=== PATIENT | female | born 1990 | race Caucasian/White ===

== ENCOUNTER 2019-02-01 10:46 | Day surgery (SDC) | payer OTHER, SELFPAY ==
[2019-01-29 09:04] VITALS: BMI 40.1
[2019-02-01] VITALS (15 sets, daily range): BP systolic 86–117; BP diastolic 40–70; PULSE 56–77; RESP 10–20; TEMP 35.8–36.5; O2SAT 94–100; BMI 40.1
--- NOTE | 2019-02-01 | PATH_ITS ---
[facility] Accession Number: [id number] . 01 Material submitted: . ovary - RIGHT OVARY WITH RIGHT FALLOPIAN TUBE . 02 Diagnosis: Right Ovary with Right Fallopian Tube: Benign mature cystic teratoma (dermoid cyst), ovary. Fallopian tube unremarkable. MRV/02/03/2019 . 02 Electronically signed: . Omar Henriquez MD, Pathologist NPI- [id number] . 01 Gross description: . Received in formalin, labeled right ovary with right fallopian tube, is an opened ovarian cyst (5.8 x 5.8 x 2.3 cm) and a detached fimbriated fallopian tube (length-4.2 cm, diameter-0.4 cm). The cyst has hill-pink smooth shiny serosa. The lining is partially hair-bearing and contains apparent bone (1.4 x 1.0 x 0.9 cm). A minimal amount of normal ovarian parenchyma is identified. The cyst contents are also submitted and consist of orange-yellow waxy paste-like material mixed with matted strands of hair (9.0 x 7.5 x 2.3 cm in aggregate). The fallopian tube has hill-beltre smooth shiny serosa with multiple paratubal cysts (0.1 cm-0.8 cm) containing clear colorless fluid. The lumen is beltre and unremarkable. Section code: (A1-A4) ovarian cyst, cash applications representative tissue; (A5) fallopian tube, cash applications representative serial sections; (A6) fimbria, bivalved, entirely submitted. ([id number]) /MRV . 02 Pathologist provided ICD-10: D27.0 . 02 CPT . 390327 Performed at: [address] [place] [address] [address], [place], [place] [id number] MD Amadou Pozo MD Phone: [phone] Performed at: [facility] [address] [place] [id number] MD Lizzie Ovalles MD Phone: [phone]
[2019-02-01] MEDS: METOCLOPRAMIDE 10 MG/2 ML INJ IV (11:22)
[2019-02-01] MEDS: FAMOTIDINE 20 MG/50 ML PIGGYBACK 200 MG IV (11:22)
[2019-02-01] MEDS: LACTATED RINGERS 1,000 ML 100 ML IV ×2 (11:40→13:14)
[2019-02-01] MEDS: CEFAZOLIN 2 GM/100 ML FROZ.PIGGY IV (12:28)
--- NOTE | 2019-02-01 13:05 | SUR.OPER ---
preoperative heart tones 140
[2019-02-01] MEDS: BUPIVACAINE 0.5% W/ EPI (PF) VIAL 30 ML INJ (13:13)
--- NOTE | 2019-02-01 13:48 | PM.HP.1 ---
History of Present Illness Date Patient Seen: 02/01/19 Time Patient Seen: 11:45 Chief complaint: [id number] LAP R OOPHORECTOMY Narrative: Patient is a 28-year-old 1 para 0 at 13 weeks gestation with a 9 cm right ovarian dermoid She is here for a laparoscopic right salpingo oophorectomy Patient History Medical History (Updated 02/01/19 @ 11:18 by Rohan Colby) Dermoid cyst (Acute) (Acute) Social History household members: significant other Smoking Status: Never smoker Family & Social History Social History: household members significant other Tobacco & Substance use: Smoking Status Never smoker Meds Home Medications Medication Instructions Recorded Confirmed Type 1 tab PO DAILY 01/28/19 02/01/19 History vitamin,calcium,smgexszp-ctyj-uikbt acid tablet Allergies Allergy/AdvReac Type Severity Reaction Status Date / Time Penicillins Allergy Severe sob, I Verified 02/01/19 11:16 can't breath Exam Vital Signs (past 8 hours): - 02/01/19 11:41 Temperature 97.1 F L Pulse Rate 69 Respiratory Rate 12 Blood Pressure 117/70 Pulse Oximetry 98 Oxygen Delivery Method Room Air Narrative Exam Narrative: HEENT: No thyromegaly, no anterior cervical or supraclavicular lymphadenopathy. Lungs:Clear to auscultation bilaterally, no wheezes. Cardiovascular: Regular rate and rhythm, no murmurs, rubs, or gallops. Abdomen: No scars. No hepatosplenomegaly. No masses palpable. Fundal height: 14 cm External genitalia: Normal Vagina: Normal Cervix: Normal Bimanual exam: 13 Week size uterus. Mobile. Rectal: No masses. Assessment & Plan Assessment & Plan narrative: Assessment: 28-year-old 1 para 0 with a 9 cm right ovarian dermoid Plan: Laparoscopic right salpingo oophorectomy The risks, benefits, and alternatives to the procedure were explained to the patient. The risks including bleeding, infection, injury to the bowel, bladder, or ureters. She also understands that there is possibility of an open procedure. She understands these risks and agrees to proceed. A full par Q was held and consent form was signed. Time Spent With Patient Time with patient: 15-24 minutes
--- NOTE | 2019-02-01 13:56 | SUR.OPER ---
postoperative heart tones 137
--- NOTE | 2019-02-01 13:59 | PM.PREOP ---
Pre-operative Note Interval Note History & Physical reviewed/Exam performed by Physician: Yes Changes to H&P: No
[2019-02-01] MEDS: fentaNYL 100 MCG/2 ML INJ 50 MCG IV (14:21)
--- NOTE | 2019-02-01 14:24 | SUR.PHASEI ---
1410 OB CALLED TO COME GET FHT.
[2019-02-01] MEDS: OXYCODONE/ACETAMINOPHEN 5/325 TABLET 1 TAB PO (15:10)
--- NOTE | 2019-02-01 15:13 | SUR.PHASEI ---
1420 RN FROM OB IN TO DO FHT, [id number].
--- NOTE | 2019-02-16 20:27 | P.OP_ITS ---
Operative Date/Time/Diagnoses Date of procedure: 02/01/19 Time of procedure: 13:30 Pre-op diagnosis: 9 cm right ovarian dermoid 13 weeks gestation Post-op diagnosis: same Procedure: Procedures Operation Date: 02/01/19 11:45 Actual Procedures Side Surgeon p Laparoscopic right salpingo oophorectomy for dermoid cyst Right Claudia Cano MD Indications: 9 cm right ovarian dermoid 13 weeks gestation Surgeon: Claudia Cano Anesthesia Type: General Operative Notes Findings: 9 cm right ovarian dermoid Torsed x 1 14 week size uterus Normal liver and Gallbladder Normal appendix Closure Type: primary Specimen(s): right tube & ovary Applied: catheter Estimated blood loss (mL): 5 Blood products transfused: none Procedure in detail: After informed consent was obtained, the patient was taken to the operating room where she was placed in the dorsal supine position. After adequate general endotracheal anesthesia was achieved, she was placed in the dorsal lithotomy position, and prepped and draped in the usual sterile fashion. A time-out was performed. Nothing was placed into the vagina due to 13 weeks gestation. Attention was then turned to the abdomen where 6 cc of 0.5% Marcaine with epinephrine were injected in the umbilical fold. A 12 mm incision was made. The incision was carried down to the fascia. The fascia was nicked in the midline. The fascial incision was extended to 1 and 0.5 cm. The peritoneum was grasped between 2 hemostats and entered sharply with the Metzenbaum scissors. The Husain was placed into the peritoneal cavity. The abdominal cavity was insufflated with 3.4 L of CO2. Initial inspection with the laparoscoped revealed the findings noted above. Two other incisions were made at the level of the umbilicus, 4 cm lateral to the midline. These incisions were 5 mm. Two 5 mm trocars were placed under direct visualization. The right utero- ovarian ligament was grasped with an atraumatic grasper. Using the PlasmaKinetic was settings at 40 w, the infundibulopelvic ligament on the right side was cauterized and cut. The broad ligament was cauterized and cut all the way down to the cornua of the uterus. The tube was amputated at the cornua. The utero-ovarian vessels were cauterized and cut. The camera was changed to the left incision. An endobag was placed through the umbilical trocar. The tube and ovary were placed into the endobag. The trocar was removed and the edges of the bag were pulled up through the incision. A large needle was placed into the ovary and approximately 80 cc of fatty liquid was drained from the ovary. The bag was then removed through the umbilical incision. The ovary was opened and was found to have hair, fat, 1 2, and some bone. The pelvis was examined and there was no bleeding noted. The instruments were removed from the abdomen. The CO2 was allowed to escape. All of the trocars were removed. The fascia on the umbilical incision was closed with 0 Vicryl. The subcutaneous layer was closed with 2 simple interrupted sutures with 3 0 Vicryl. All of the incisions were closed with 4 0 Biosyn in a subcuticular fashion. Steri-Strips, 2 x 2, and op site were placed. Sponge, lap, and instrument counts were correct x2. The patient tolerated the procedure well, was taken to PACU in stable condition. Complications: none Post-operative Condition: stable Disposition: PACU Plan for aftercare: Home after recovery
== END 2019-02-01 16:22 | disposition home or self-care (01) ==
PROVIDERS: Visit Provider Obstetrics & Gynecology
PROC: (CPT 58661; principal; 2019-02-01 11:45)
DX: O99.89 Other specified diseases and conditions complicating pregnancy, childbirth and the puerperium (principal); D27.0 Benign neoplasm of right ovary; Z3A.13 13 weeks gestation of pregnancy
CPT/HCPCS: 58661; J0330; J0690; J1100; J2405; J2704; J2765; J3010

== ENCOUNTER → 2019-03-10 12:26 | Outpatient (CLI) | payer OTHER, SELFPAY ==
--- NOTE | 2019-03-10 12:29 | DI.US.S_ITS ---
PROCEDURE: US OB >= 14 WEEKS FETUS INDICATIONS: ANATOMY OUTSIDE/PRIOR DATING DATA: Last menstrual period (LMP): Unknown. LMP-based estimated date of delivery (BRENT): Not applicable. First dating scan (date and location): 01/28/19. Estimated date of delivery (BRENT) from first dating scan: 08/01/19. TECHNIQUE: Real-time scanning was performed of the fetus, with image documentation and biometric measurements. Endovaginal scanning: Not performed COMPARISON: None. FINDINGS: General: A single living intrauterine gestation is present. Presentation: Vertex. Placenta: Placental position is posterior, without previa. There is a low-lying placenta with the edge of the placenta measuring approximately 1.5 cm from the internal cervical os. Amniotic fluid index: 16.5 cm, normal range is 5-24 cm. heart rate: 144 beats per minute. Maternal cervical canal: 5.7 cm long. Normal lower limit is 2.5 cm. biometrics: Biparietal diameter: 4.6 cm, correlating with 19 weeks and 6 days Head circumference: 16.8 cm, correlating with 19 weeks and 3 days Abdominal circumference: 13.8 cm, correlating with 19 weeks and 2 days Femur length: 3.1 cm, correlating with 19 weeks and 5 days Estimated gestational age from initial scan: 19 weeks and 3 days. Composite gestational age from present scan: 19 weeks and 4 days Estimated weight and percentile: 293 [address] the fetus within the 46th percentile. Measurement variability for biometric dating: +/- 7 days from 14 weeks to 15 weeks 6 days gestation, +/- 10 days from 16 weeks to 21 weeks 6 days gestation, +/- 2 weeks from 22 weeks to 27 weeks 6 days gestation, +/- 3 weeks for 28 weeks gestation or later. weight reference: 4500 g or EFW >90/95% is considered macrosomia or large for gestational age. EFW <10% is small for gestational age. EFW 5% or less is considered intra-uterine growth restriction. Anatomic survey: Neuro: Ventricles are non-dilated at less than 10 mm. Cisterna magna is normal at 3-11 mm. Cerebellum is normal in size and morphology. Nuchal skin fold: Normal at less than 6 mm between 14-21 weeks gestational age. Face: Nose and lips, facial profile are normal. Spine: No evidence for spina bifida. Heart: 4-chambered heart is present, with normal ventricular outflow tracts. Diaphragm: Diaphragm is intact. Stomach: Left-sided stomach is present. Kidneys: No hydronephrosis. Normal is less than 5 mm in 2nd trimester, less than 7 mm in 3rd trimester. Cord: 3-vessel cord has orthotopic insertion. Bladder: Normal in size. Extremities: All 4 extremities identified. IMPRESSION: 1. Single living intrauterine gestation with an estimated sonographic gestational age of approximately 19 weeks and 4 days. Estimated weight is approximately 293 g which [address] the fetus within the 46th percentile based off gestational age. 2. Low lying placenta with the tip of the placenta measuring approximately 1.5 cm from the internal cervical os. Recommend continued clinical surveillance with repeat imaging as needed. 3. Unremarkable sonographic evaluation of the imaged anatomic structures. Dictated by: Bertin Carranza M.D. on 03/10/2019 at 13:52 Approved by: Bertin Carranza M.D. on 03/10/2019 at 13:58
== END ==
PROVIDERS: PCP Midwife; Visit Provider Obstetrics & Gynecology
DX: Z34.02 Encounter for supervision of normal first pregnancy, second trimester (principal); Z3A.19 19 weeks gestation of pregnancy
CPT/HCPCS: 76811

== ENCOUNTER → 2019-06-15 13:52 | Outpatient (CLI) | payer OTHER, SELFPAY ==
--- NOTE | 2019-06-15 | DI.US.S_ITS ---
PROCEDURE: US OB LIMITED INDICATIONS: LOW LYING PLACENTA OUTSIDE/PRIOR DATING DATA: Last menstrual period (LMP): Not available. LMP-based estimated date of delivery (BRENT): Not available. First dating scan (date and location): 01/28/19 Estimated date of delivery (BRENT) from first dating scan: 08/01/19. TECHNIQUE: Real-time scanning was performed of the fetus, with image documentation. Endovaginal scanning: Not needed COMPARISON: [facility], , OB <= 14 WEEKS FETUS, 01/28/2019, 13:53. FINDINGS: A single living intrauterine gestation is present. Presentation: Vertex. Amniotic fluid volume is normal, heart rate 158 beats per minute Placenta: Placental position posterior and the inferior tip of the placenta is at least 5 cm from the internal os of the cervical canal, without previa. IMPRESSION: The placental margin is at least 5 cm from the internal os of the cervical canal, there is no suspicion for placenta previa. Delivery date is projected to be centered on 08/01/19. Dictated by: Matthew Valencia M.D. on 06/15/2019 at 16:18 Approved by: Matthew Valencia M.D. on 06/15/2019 at 16:24
== END ==
PROVIDERS: Family Provider Midwife; Visit Provider Midwife
DX: Z36.2 Encounter for other antenatal screening follow-up (principal); Z3A.33 33 weeks gestation of pregnancy
CPT/HCPCS: 76815

== ENCOUNTER → 2021-01-10 12:21 | Outpatient (CLI) | payer OTHER, SELFPAY ==
--- NOTE | 2021-01-10 | DI.US.S_ITS ---
PROCEDURE: US OB <= 14 WEEKS FETUS INDICATIONS: INITIAL SIZE AND DATING OUTSIDE/PRIOR DATING DATA: First dating scan (date and location): 01/10/2021. Estimated date of delivery (BRENT) from first dating scan: 08/13/2021. TECHNIQUE: Real-time scanning was performed of the fetus and maternal pelvic organs, with image documentation. Endovaginal scanning was also performed to better visualize the fetus and maternal ovaries. COMPARISON: [facility], US, OB <= 14 WEEKS FETUS, 01/28/2019, 13:53. FINDINGS: Embryo: [place]-rump length measures 25 mm corresponding to 9 weeks 2 days. Heart rate: 173 beats per minute. Measurement variability in dating: +/- 4 weeks by LMP, +/- 7 days by mean sac diameter (use before 6 weeks gestation if crown-rump length not able to be measured), +/- 5 days by crown-rump length (up to 8 weeks 6 days gestation), +/- 7 days by crown-rump length (up to 13 weeks 6 days gestation). Maternal organs: Corpus luteal cyst involves the left ovary in the right ovary is not visualized. IMPRESSION: 9 week 2 day single living IUP. Dictated by: Sathya Cueva [facility] Interpreted: Stephon Prado MD on 01/10/2021 at 13:06 Transcribed by: SHA on 01/10/2021 at 13:07 Approved by: Trell Prado M.D. on 01/16/2021 at 11:20
== END ==
PROVIDERS: Family Provider Midwife; Referring Provider Midwife; Visit Provider Midwife
DX: Z34.90 Encounter for supervision of normal pregnancy, unspecified, unspecified trimester (principal); Z36.87 Encounter for antenatal screening for uncertain dates; Z3A.09 9 weeks gestation of pregnancy
CPT/HCPCS: 76801; 76830